=== PATIENT | male | born 1990 | race Caucasian/White ===

== ENCOUNTER 2016-10-01 19:16 | Emergency (ER) | payer MEDICAID ==
[~2016-10-01] VITALS: Ht 185.4 cm; Wt 168.3 kg
[2016-10-01 19:16] VITALS: BP_SYST 143
[2016-10-01] MEDS: DEXAMETHASONE SOD PHOSPHATE 10 MG/ML VIAL IM ONE (19:49)
== END 2016-10-01 19:30 | disposition home or self-care (01) ==
LOC: SED 19:16
DX: M48.06 Spinal stenosis, lumbar region (principal)
CPT/HCPCS: 96372; 99283; J1100